=== PATIENT | male | born 1975 | race Caucasian/White ===

== ENCOUNTER → 2018-08-09 | Outpatient (CLI) | payer OTHER | END | disposition home or self-care (01) | LOC: CFH 15:28 | PROVIDERS: ATTEND Nurse Practitioner Family | DX: J34.1 Cyst and mucocele of nose and nasal sinus (principal); J32.9 Chronic sinusitis, unspecified | CPT/HCPCS: 70486 ==

== ENCOUNTER 2018-08-16 10:58 | Emergency (ER) | payer OTHER ==
[~2018-08-16] VITALS: Ht 180.3 cm; Wt 101.6 kg
[2018-08-16 13:10] VITALS: BP 132/72
== END 2018-08-16 13:12 | disposition home or self-care (01) ==
LOC: ED 13:06
DX: M25.461 Effusion, right knee (principal); W00.0XXA Fall on same level due to ice and snow, initial encounter; Y93.89 Activity, other specified; Y92.009 Unspecified place in unspecified non-institutional (private) residence as the place of occurrence of the external cause; Y99.8 Other external cause status
CPT/HCPCS: 29505; 99283

== ENCOUNTER 2018-11-23 12:27 | Emergency (ER) | payer MEDICARE, OTHER ==
[~2018-11-23] VITALS: Ht 180.3 cm; Wt 102.3 kg
[2018-11-23] MEDS ORDERED: ONDANSETRON ODT 4 MG PO ONE (13:00)
[2018-11-23 13:03] LABS: BASOPHILS # (AUTO) 0.02 x10^3/uL (0-0.1); BASOPHILS % (AUTO) 0 % (0-1); EOSINOPHILS # (AUTO) 0.21 x10^3/uL (0-0.4); EOSINOPHILS % (AUTO) 3 % (1-7); LYMPHOCYTES # (AUTO) 1.94 x10^3/uL (1-3.4); LYMPHOCYTES % (AUTO) 31 % (22-44); MD NO; MEAN CORPUSCULAR HEMOGLOBIN 26.6 pg (27.5-34.5); MEAN CORPUSCULAR HGB CONC 32.3 g/dL (33.2-36.2); MEAN CORPUSCULAR VOLUME 82.5 fL (81-97); MEAN PLATELET VOLUME 7.9 fL (7.4-10.4); MONOCYTES # (AUTO) 0.41 x10^3/uL (0.2-0.8); MONOCYTES % (AUTO) 7 % (2-9); NEUTROPHILS % (AUTO) 58 % (42-75); PLATELET COUNT 340 x10^3/uL (130-400); RED BLOOD COUNT 5.36 x10^6/uL (4.38-5.82); RED CELL DISTRIBUTION WIDTH 14.5 % (9.4-14.8)
[2018-11-23 13:14] LABS: ANION GAP 6 mmol/L (5-15); CALCIUM 8.7 mg/dL (8.5-10.1); CHLORIDE 110 mmol/L (98-107)
[2018-11-23 13:20] LABS: ALANINE AMINOTRANSFERASE 40 U/L (12-78); ALKALINE PHOSPHATASE 66 U/L (45-117); BILIRUBIN,TOTAL 0.5 mg/dL (0.2-1.0); CREATININE 0.95 mg/dL (0.7-1.3); TOTAL PROTEIN 7.9 g/dL (6.4-8.2); TROPONIN I < 0.015 ng/mL (0.000-0.045)
--- NOTE | 2018-11-23 14:50 | NUR ---
[employer]: PT TO ROOM FROM [facility]
--- NOTE | 2018-11-23 15:04 | NUR ---
FIRST CONTACT WITH PT. PT SITTING UP IN [place] NOTED. REPORTS INTERMITTENT ABD PAIN/'SWEATING' X "I DON'T KNOW HOW LONG". PT DENIES N/V/D/SWEATING AT THIS TIME, DENEIS ABD PAIN, "ITS A LITTLE UPSET". BP/SPO2 MONITOR IN PLACE. PT AWARE OF NEED FOR UA
[2018-11-23 15:11] VITALS: BP 159/90
[2018-11-23 15:23] LABS: MICROSCOPIC NOT IND
[2018-11-23 15:27] LABS: CULTURE INDICATED? NO
--- NOTE | 2018-11-23 15:44 | NUR ---
DC EDUCATION PROVIDED, PT DEMONSTRATES UNDERSTANDING. PT AMBULATED STEADILY TO DC WITH RN.
== END 2018-11-23 15:46 | disposition home or self-care (01) ==
LOC: ED 15:29
DX: K29.00 Acute gastritis without bleeding (principal); I10 Essential (primary) hypertension
CPT/HCPCS: 36415; 74022; 76700; 80053; 81003; 83690; 84484; 85025; 93005; 99284